=== PATIENT | female | born 1950 | race Caucasian/White ===

== ENCOUNTER 2019-03-25 07:40 | Inpatient (IN) ==
--- NOTE | 2019-02-24 16:59 | History & Physical Report ---
Date of Service February 24, 2019 Assessment & Plan (1) Unilateral primary osteoarthritis, left hip: DIAGNOSES: Left hip osteoarthritis. PROCEDURE: Left total hip arthroplasty. PLAN: The patient is scheduled to undergo this procedure with Dr. Jarrod Arias at [facility] as an inpatient on March 25, 2019. Risks and complications of the procedure, such as infection, bleeding, pain, scarring, nerve and blood vessel damage, weakness, wound problems, stiffness, incomplete relief of symptoms, hardware failure, hardware loosening, fracture, tendon or ligament injury, dislocation, leg-length inequality, blood clots, embolism, heart attack, stroke and were explained to the patient at her visit today by Dr. Arias. Informed consent to perform the procedure was obtained. We also need to obtain preoperative medical clearance from the patient's primary care provider, Dr. Chris Arnold. She states she has an appointment with him next Friday and will have him sign off PCP clearance form that was provided. The patient will also need to obtain a preoperative CBC with differential, complete metabolic panel, PT, INR, blood type and screen, urinalysis, urine culture, EKG, hemoglobin A1c, and a nasal culture for MRSA. She states she will obtain these tests at [facility] in [place]. She is scheduled for her preoperative anesthesia clearance examination at the [facility] on March 04 at 2:30 p.m. The patient was given information regarding antibiotic use after total joint replacement today. She was given information about lectures offered by [facility] in regards to joint replacement therapy. We went over some discharge planning information with her. She states she will most likely be discharged home with some type of home health or therapy service. I advised her that I will prescribe medications for pain control upon discharge from the hospital. I advised her to bring her walker with her the day of surgery. I instructed her about purchasing a hip kit to use at home to help her do activities of daily living. The patient will be scheduled for her postoperative followup visit at the 2-week postoperative interval with Dr. Arias on April 09 at 1:15 in the afternoon. The patient verbalized understanding of all information provided during today's visit, thanked us for the care she has received, and states if she has questions or concerns that should arise prior to her surgery date, she will contact the clinic accordingly. History of Present Illness Chief Complaint: left hip pain Primary Care Provider: Chris Arnold CHIEF COMPLAINT: Left hip pain. HISTORY OF PRESENT ILLNESS: This 68-year-old female presents to clinic today for a preoperative history and physical. The patient complains of a 1+-year history of hip pain that has been insidious with onset without any traumatic type of injury. She states that the pain is located over the lateral aspect of the hip, but over the past several months it has moved into the groin. The pain is exacerbated with ambulation or standing in one place for a long period of t [place] and improves with rest, and states that her PCP prescribed Celebrex, which has been not very effective at alleviating any type of pain. The patient denies any numbness or tingling in her left lower extremity or any localization of the vein to the posterior aspect of the hip. PAST MEDICAL HISTORY: Asthma, breast cancer, gastroesophageal reflux, anemia, gallstones, hyperlipidemia, hypertension. PAST SURGICAL HISTORY: Partial mastectomy, total abdominal hysterectomy, bilateral salpingo-oophorectomy, cardiac catheterization, hernia repair, tonsillectomy/adenoidectomy and appendectomy. FAMILY HISTORY: Positive for heart disease. ALLERGIES: THE PATIENT HAS MEDICATION ALLERGIES TO PENICILLIN AND CECLOR. SOCIAL HISTORY: The patient denies tobacco or illicit drug use. States she occ asionally consumes alcohol. CURRENT MEDICATIONS: Advair Diskus 100 mcg-50 mcg 1 puff twice daily, aspirin 81-mg oral delayed-release tablet 1 tab daily, Cartia XT 240 mg/24-hour oral capsule extended-release 1 cap daily, Celebrex 100-mg oral capsule 1 cap daily, folic acid unknown dosage daily, hydrochlorothiazide 12.5-mg oral capsule daily, losartan 100-mg oral tablet daily, simvastatin 20-mg oral tablet at bedtime, venlafaxine 37.5-mg oral tablet 1 tab daily, vitamin D3 1000 international units oral capsule daily, zafirlukast 20-mg oral tablet 1 tab twice daily, and Zyrtec unknown dosage daily. Allergies Allergy/AdvReac Type Severity Reaction Status Date / Time Penicillins Allergy Intermediate HIVES Unverified 05/02/10 14:42 Home Medications Home Medications Medication Instructions Recorded Confirmed Type Amlodipine (Norvasc) 10 mg PO DAILY #0 05/02/10 History Esomeprazole Magnesium (Nexium) 40 mg PO DAILY #0 05/02/10 History Fluticasone Prop/Salmeterol 1 puff INHALATION BID #0 05/02/10 History (Advair Diskus 250/50 Mcg *) Hydrochlorothiazide (Hctz *) 25 mg PO DAILY #0 05/02/10 History Losartan Potassium (Cozaar *) 100 mg PO DAILY #0 05/02/10 History Simvastatin (Zocor) 20 mg PO QPM #0 05/02/10 History Zafirlukast (Accolate *) 20 mg PO BID #0 05/02/10 History CHOLECALCIFEROL (VITAMIN D 1000 2,000 inter.unit PO DAILY #0 cap 04/30/12 History UNIT) MECLIZINE HCL (ANTIVERT) 12.5 mg PO TID PRN #0 tab 04/30/12 History TAMOXIFEN CITRATE 20 mg PO DAILY #0 tab 04/06/13 History VENLAFAXINE HCL (VENLAFAXINE 37.5 mg PO DAILY #0 cap 04/06/13 History EXTENDED REL) Review of Systems All systems reviewed & are unremarkable except as noted in HPI & below Physical Exam Physical Exam: PHYSICAL EXAMINATION: Skin: The patient's skin is normal in appearance. No skin lesions or discharge. Eyes: Pupils are equal and react to light and accommodating. Extraocular movements are intact. Throat: Posterior oropharynx is clear with absence of edema, erythema or exudate. Cardiovascular exam: The patient has a regular rate and rhythm with no murmurs or gallops appreciated. Lungs: Auscultation of the lung marsh reveals clear breath sounds throughout; no wheezing, rales or rhonchi. Abdomen is mildly obese, nondistended, nontender with normoactive bowel sounds. Extremities: Left hip, flexion is limited to 85 degrees, internal rotation to -25 degrees, external rotation to 45 degrees. Stinchfield and log roll tests are negative. The patient experiences referred pain to the groin with passive abduction and adduction. Straight-leg raise test is negative. The patient is neurovascularly intact in the left lower extremity. Calf is soft and supple, nontender to palpation, and she has no tenderness over the trochanteric bursa. Neurological exam: Cranial nerves 2-12 are intact. No motor or sensory deficit. Psychological/general exam: The patient is alert and oriented x3 with proper grooming and hygiene.
--- NOTE | 2019-03-03 16:23 | PAT Medication Instructions ---
Medication Instructions Date of Service March 03, 2019 Home Medications acetaminophen [Tylenol Extra Strength] 1,000 mg PO Q6H PRN albuterol sulfate 2 puff INHALATION Q6H PRN aspirin [Aspir-81] 81 mg PO QAM celecoxib [Celebrex] 100 mg PO BID cetirizine [Zyrtec] 10 mg PO QAM cholecalciferol (vitamin D3) [Vitamin D3] 1,000 unit PO QAM cyanocobalamin (vitamin B-12) 1,000 mcg PO WK diltiazem HCl [Cartia XT] 240 mg PO QAM fluticasone propion-salmeterol [Advair Diskus] 1 inh INHALATION BID folic acid 1 mg PO QAM hydrochlorothiazide 12.5 mg PO QAM losartan 100 mg PO QAM simvastatin 20 mg PO PM zafirlukast 20 mg PO BID ASK your surgeon for instructions celecoxib [Celebrex] 100 mg PO BID DO NOT take the morning of surgery cetirizine [Zyrtec] 10 mg PO QAM cholecalciferol (vitamin D3) [Vitamin D3] 1,000 unit PO QAM cyanocobalamin (vitamin B-12) 1,000 mcg PO WK folic acid 1 mg PO QAM hydrochlorothiazide 12.5 mg PO QAM losartan 100 mg PO QAM zafirlukast 20 mg PO BID Take morning of surgery With a small sip of water, OTHERWISE NOTHING TO EAT OR DRINK AFTER MIDNIGHT: acetaminophen [Tylenol Extra Strength] 1,000 mg PO Q6H PRN (okay to take up to 4 hours prior to surgery if needed) albuterol sulfate 2 puff INHALATION Q6H PRN (use if needed; please bring with you to hospital day of surgery if possible) aspirin [Aspir-81] 81 mg PO QAM diltiazem HCl [Cartia XT] 240 mg PO QAM fluticasone propion-salmeterol [Advair Diskus] 1 inh INHALATION BID Take evening before surgery acetaminophen [Tylenol Extra Strength] 1,000 mg PO Q6H PRN (if needed) albuterol sulfate 2 puff INHALATION Q6H PRN (if needed) fluticasone propion-salmeterol [Advair Diskus] 1 inh INHALATION BID simvastatin 20 mg PO PM zafirlukast 20 mg PO BID Other Notes If you have any questions please call us at [phone] or [phone] or [phone] or [phone]
--- NOTE | 2019-03-04 14:16 | Anesthesiology Consultation ---
Date of Service March 04, 2019 Assessment & Plan (1) Encounter for pre-operative examination: - Awaiting PCP response abnormal preop EKG and optimization (Dr. Arnold). Chart Review Chart Review: Patient seen in Pre Admission Testing Teaching & Discussion Pre-Anesthesia Teaching/Discussion Notes: Instructed NPO after midnight before surgery,except medications with 15 cc of water. Medication instructions provided according to the PAT guidelines. History Surgery Operation Date: 03/25/19 10:05 Proposed Procedures p Left Total Hip Arthroplasty - Jarrod Arias MD Height/Weight Height: 5 ft 2 in Weight: 75.7 kg Allergies Allergy/AdvReac Type Severity Reaction Status Date / Time Penicillins Allergy Intermediate HIVES Verified 03/03/19 13:50 cefaclor [From Ceclor] Allergy Unknown Rash Verified 03/03/19 13:50 wheat Allergy Unknown CELIAC Verified 03/03/19 13:51 DISEASE Medications Home Medications Medication Instructions Recorded Confirmed Last Taken acetaminophen [Tylenol Extra 1,000 mg PO Q6H PRN 03/03/19 03/03/19 Unknown Strength] albuterol sulfate 2 puff INHALATION Q6H PRN 03/03/19 03/03/19 Unknown aspirin [Aspir-81] 81 mg PO QAM 03/03/19 03/03/19 Unknown celecoxib [Celebrex] 100 mg PO BID 03/03/19 03/03/19 Unknown cetirizine [Zyrtec] 10 mg PO QAM 03/03/19 03/03/19 Unknown cholecalciferol (vitamin D3) 1,000 unit PO QAM 03/03/19 03/03/19 Unknown [Vitamin D3] cyanocobalamin (vitamin B-12) 1,000 mcg PO WK 03/03/19 03/03/19 Unknown diltiazem HCl [Cartia XT] 240 mg PO QAM 03/03/19 03/03/19 Unknown fluticasone propion-salmeterol 1 inh INHALATION BID 03/03/19 03/03/19 Unknown [Advair Diskus] folic acid 1 mg PO QAM 03/03/19 03/03/19 Unknown hydrochlorothiazide 12.5 mg PO QAM 03/03/19 03/03/19 Unknown losartan 100 mg PO QAM 03/03/19 03/03/19 Unknown simvastatin 20 mg PO PM 03/03/19 03/03/19 Unknown zafirlukast 20 mg PO BID 03/03/19 03/03/19 Unknown Past Medical History Medical History Asthma GERD (gastroesophageal reflux disease) HX- No issues since hiatal hernia repair Hiatal hernia Hyperlipidemia Hypertension Osteoarthritis Exercise / Class Metabolic Activity III < 4 Walking/Shop/Light housework Past Family History Family History Brother Family hx of colon cancer Past Surgical History Surgical History Cancer RIGHT BREAST LUMPECTOMY-NO NODE EXCISION 2007-RADIATION/NO CHEMO History of cardiac cath 5+ YEARS AGO= NO STENTS History of cholecystectomy History of hysterectomy TOTAL History of repair of hiatal hernia History of tonsillectomy Past Anesthesia History No Hx of Anesthesia Complications (except post-op nausesa (no issues when pre- treatment given)) and No Family Hx of Anesthesia Complications History of PONV History of PONV (post-op nausesa (no issues when pre-treatment given)) and Hx of Motion Sickness Social History Smoking Status: Former smoker Do You Dip or Chew Tobacco: No Smoking End Date: QUIT 20 YRS AGO Hx Alcohol Use: Yes Alcohol type: wine alcohol intake frequency: a few times a week Hx Substance Use: No substance use type: does not use Review of Systems Patient denies chest pain, shortness of breath, reflux, cough, wheezing, pa lpitations. Physical Exam Vital Signs VITALS BP 130/78 P 60 TEMP 98.3 SP02 94%RA RESP 18 PHYSICAL Full neck and c-spine range of motion. Full TMJ range of motion. TMD 3.5 finger breaths Mallampati Score 1 Dentition: chipped molar, missing sides/molars, upper side crowns Lungs: clear throughout to auscultation Cardiac: regular rate and rhythm, no murmurs noted Spine: normal Carotid arteries: negative bruit Extremities: no edema Testing Laboratory Results APTT 24.0 Seconds (21.0-31.0) 03/04/19 14:30 Blood Type A Negative 03/04/19 14:30 Antibody Screen NEGATIVE 03/04/19 14:30 02/25/19 WBC 6.7 H/H 13.9/43.6 PLATELETS 238 SODIUM 144 POTASSIUM 4.0 CHLORIDE 108 CO2 28 BUN 21 CREATININE 0.6 GLUCOSE 93 PT 9.2 INR 0.96 HGBA1C 5.6% UA negative bacteria URINE CULTURE mixed gigi Electrocardiogram Date: 02/25/19 NSR at 80bpm. Cannot rule out anterior infarct.
[2019-03-04 15:48] LABS: Partial Thromboplastin Ratio 0.9
[~2019-03-25 07:40] MED LIST: ACETAMINOPHEN 500 MG TAB PO SCH; BUPIVACAINE 0.5 % 5 MG/1 ML PF 10ML VIAL ONE; CEFAZOLIN 2000MG 2,000 MG/15 ML SYR IV SCH; CeleBREX 200 MG CAP PO SCH; FAMOTIDINE 20 MG TAB PO SCH; LR 500ML BOLUS, THEN 15ML/HR IV SCH; LR 60ML/HR IV SCH; METOCLOPRAMIDE HCL 10 MG TABLET PO SCH; ROPIVACAINE 0.5% HCL/PF 150 MG, BUPIVACAINE 0.5% MPF 30 ML, EPINEPHrine 30MG/30ML (OR U... INSTIL SCH; SCOPOLAMINE 1.5 MG TDSY TD SCH; TRAMADOL HCL 50 MG TABLET PO SCH; TRANEXAMIC ACID 1,000 MG x 1 **For Topical Use TOP SCH; dexAMETHasone 4 MG TAB PO SCH
[2019-03-25] MEDS ORDERED: fentaNYL citrate 100 MCG/2 ML VIAL ONE (09:17)
[2019-03-25] MEDS ORDERED: PROPOFOL IV EMULSION 10 MG/ML 20 ML VIAL IV ONE (09:17)
[2019-03-25] MEDS ORDERED: MIDAZOLAM HCL 1 MG/ML 2ML VIAL ONE ×2 (09:17→10:26)
--- NOTE | 2019-03-25 09:43 | History & Physical Bridge Note ---
Date of Service March 25, 2019 History & Physical Bridge Note I have examined the patient, reviewed the History & Physical and in the interval since the performance of the History & Physical I have noted the following changes of clinical significance: no changes noted
[2019-03-25] MEDS ORDERED: ATROPINE SULFATE 0.1 MG/ML 10ML SYR IV PRN (10:38)
[2019-03-25] MEDS ORDERED: ePHEDrine sulfate 50 MG/ML AMP IV PRN (10:38)
--- NOTE | 2019-03-25 11:50 | Post Operative Brief Note ---
Immediate Post Op Note v1 Date of Surgery March 25, 2019 Pre & Post Diagnosis Operation Date: 03/25/19 10:05 Pre-Op Diagnosis: Left Hip Osteoarthritis Post-Op Diagnosis: Left Hip Osteoarthritis Procedure Operation Date: 03/25/19 10:05 Actual Procedures p Left Total Hip Arthroplasty--Uncemented(Left) - Jarrod Arias MD Surgeon Jarrod Arias MD Sales Effectiveness Manager NANCY Fitzgerald PA-C Estimated Blood Loss 200 Findings Consistent with Post-Op Diagnosis Fluids 800 cc Specimens Femoral head Anesthesia Type Spinal MAC Complications none Disposition Accompanied Patient To Recovery: No Disposition: Recovery Room
[2019-03-25] MEDS ORDERED: ONDANSETRON INJ 2 MG/ML 2 ML VIAL IV PRN (12:05)
[2019-03-25] MEDS ORDERED: ALUMINUM/MAGNESIUM SUSP 30 ML UDC PO PRN (12:05)
[2019-03-25] MEDS ORDERED: DiphenhydrAMINE HCL 50 MG/ML VIAL IV PRN (12:05)
[2019-03-25] MEDS ORDERED: NALOXONE HCL 0.4 MG/1 ML VIAL/CARP IV PRN (12:05)
[2019-03-25] MEDS ORDERED: bisacodyL 10 MG SUPP PR PRN (12:05)
[2019-03-25] MEDS ORDERED: MAGNESIUM HYDROXIDE SUSP 30 ML UDC PO PRN (12:05)
[2019-03-25] MEDS ORDERED: METOCLOPRAMIDE HCL INJ 5 MG/ML 2 ML VIAL IV PRN (12:05)
[2019-03-25] MEDS ORDERED: OXYCODONE HCL IR 5 MG TAB (IMMEDIATE RELEASE) PO PRN (12:05)
[2019-03-25] MEDS ORDERED: HYDROmorphone INJ 0.5 MG/0.5 ML SYR IV PRN (12:05)
--- NOTE | 2019-03-25 12:05 | Operative Report ---
Post Operative Report Pre & Post Diagnosis Operation Date: 03/25/19 10:05 Pre-Op Diagnosis: Left Hip Osteoarthritis Post-Op Diagnosis: Left Hip Osteoarthritis Procedure Operation Date: 03/25/19 10:05 Actual Procedures p Left Total Hip Arthroplasty--Uncemented(Left) - Jarrod Arias MD Surgeon Jarrod Arias MD Steel Grinder NANCY Fitzgerald PA-C Estimated Blood Loss 200 Findings Consistent with Post-Op Diagnosis Specimens Left Femoral Head Complications none Disposition Accompanied Patient To Recovery: Yes Disposition: Recovery Room Description of Procedure I was present during the entire case assisting with wound closure and dressing application. Please see Dr. Arias procedure note for specifics of the case. I attest to the content of the Intraoperative Record and any orders documented therein. Any exceptions are noted below.
[2019-03-25] MEDS ORDERED: ACETAMINOPHEN 500 MG TAB PO PRN (12:08)
[2019-03-25] MEDS ORDERED: ALBUTEROL HFA 8 GM INHALER INH PRN (12:08)
--- NOTE | 2019-03-25 12:28 | XRay Report ---
XR hip 1V LT w pelvis CLINICAL HISTORY: Postoperative evaluation. COMPARISON: Pelvis radiograph February 24, 2019. FINDINGS: Alignment of the total left hip arthroplasty is anatomic. The hardware is intact. There is no fracture. Acetabular screw is noted. No unexpected radiopaque foreign bodies are noted. IMPRESSION: Expected findings following total left hip arthroplasty. Electronically signed by: eCsar Ho M.D. 03/25/2019 12:26 PM
--- NOTE | 2019-03-25 12:47 | Anesthesiology Progress Note ---
Date of Service March 25, 2019 Anesthesia Post Procedure Vital Signs Vital Signs: Temp Pulse Pulse Resp BP BP Pulse Ox 03/25/19 12:40 36.9 C 63 16 119/67 97 03/25/19 12:30 65 15 120/64 97 03/25/19 12:20 64 13 105/60 93 03/25/19 12:10 61 17 111/59 L 95 03/25/19 12:03 36.7 C 63 12 97/60 L 100 03/25/19 08:12 36.8 C 88 18 175/86 H 95 Transfer of Care Handoff Completed per policy Notes Mental Status: alert / awake / arousable Patient Amnestic to Procedure: Yes Nausea / Vomiting: adequately controlled Pain: adequately controlled Airway Patency, RR, SpO2: stable & adequate BP & HR: stable & adequate Hydration State: stable & adequate Neuraxial Anesthesia: was administered and sensory block is resolving Anesthetic Complications: no major complications apparent
[2019-03-25] MEDS: KETOROLAC TROMETHAMINE 15 MG/ML VIAL IV SCH ×2 (13:48→20:27)
--- NOTE | 2019-03-25 14:02 | Operative Report ---
DATE OF OPERATION: 03/25/2019 PREOPERATIVE DIAGNOSIS: Left hip osteoarthritis. POSTOPERATIVE DIAGNOSIS: Left hip osteoarthritis. OPERATIONS PERFORMED: Left total hip arthroplasty. SURGEON: Jarrod Arias MD. ROVING SIZER: Mari Fitzgerald PA-C and Andrzej Hodgson MS-3. ESTIMATED BLOOD LOSS: 200 mL. IV FLUIDS: 800 mL crystalloid. SPECIMENS: Femoral head. COMPLICATIONS: None. IMPLANTS: 1. DePuy 54 mm outer diameter [place] Gription acetabular sector cup. 2. [place] 6.5 x 40 mm cancellous bone screw. 3. A polyethylene liner Ultrex [place] with 36 mm inner diameter. 4. DePuy [place] 4 standard offset stem. 5. Biolox delta 36 mm diameter femoral head with +8.5 offset. INDICATIONS: The patient is a 68-year-old female with left hip osteoarthritis, refractory to conservative management. I had a long discussion with her about the risks and benefits of surgery, alternatives to surgery and expected outcomes. After reviewing all these, she elected to proceed with surgery. All questions were answered. Informed consent was signed. DESCRIPTION OF THE OPERATION: The patient was identified in the preoperative holding area where her surgical site was marked. She was given a spinal anesthetic, then brought back to the main Operating Room where she was moved on to the Operating Room table and carefully positioned in the lateral decubitus position. All bony prominences were padded. Axillary roll was placed. She was prepped and draped in normal sterile fashion. Prior to incision, a multidisciplinary timeout was called. All in the room were in agreement. I began by making 16 cm long incision for posterior approach to the hip. Fascia was incised in line with the incision. Charnley bow was placed. Trochanteric bursa was excised. Piriformis and short external rotators were dissected off the posterior aspect of the hip capsule. A box cut was made in the hip capsule. Femoral head was dislocated. A neck cut was made at 10 mm, which was our preoperative template. The acetabulum was exposed. The labrum and cotyloid fossa contents were excised. We then began reaming with a size 46 mm reamer. This was used to medialize her acetabulum down to the medial wall. We then sequentially reamed up to a size 54 cup. The 54 cup was then opened up and was impacted into position with 45 degrees of lateral opening and 25 degrees of anteversion. A single cancellous bone screw was placed up into the ilium. Excellent fixation was obtained. The polyethylene liner was then placed and impacted into position. A locking mechanism was checked to ensure that head has engaged, which it had. Next, the femur was exposed. The ZenMate cutter was used to remove the lateral neck. The intramedullary guide was used followed by the lateralizing reamer. We then broached up to a size 4 broach. We trialed there initially with a standard offset neck to +5 head. Her offset was just a little bit less than what we had measured lesser troch to center head distance before making a neck cut and therefore we upsized her to +8.5 head. Here her offset measurement was symmetric and her leg lengths were symmetric. She had no impingement with extension and external rotation. She was stable in the sleeper position. At 90 degrees of hip flexion, she could be internally rotated 40 degrees before leaving out of the cup. I was happy with the stability exam. Therefore, the trial components removed. The real standard offset femoral stem was opened up and impacted down in position. It sat at the same level as the broach; therefore, the +8.5 mm ceramic femoral head 36 mm diameter was opened up and impacted gently down onto the trunnion. The hip was atraumatically reduced. The wound was irrigated with dilute Betadine solution. We then used topical tranexamic acid 100 mL after the wound had been irrigated out. We then began to close. The short external rotators and capsule were repaired to the posterior aspect of the greater trochanter through bone tunnels. The fascia was run with a looped #1 PDS. The subcutaneous layers were closed with a running #1 PDS in 2 layers. The dermis was closed using 2-0 Vicryl. Zipline was used for the skin followed by Silverlon dressing and a compressive dressing. The patient was moved back in the supine position. Her leg lengths were checked and were symmetric. She was then transferred to the Recovery Room in stable condition. POSTOPERATIVE COURSE: The patient will be admitted overnight for pain control and monitoring. She will discharge home tomorrow. She will be on aspirin for DVT prophylaxis. I attest to the content of the Intraoperative Record and any orders documented therein. Any exception s are noted below.
[2019-03-25] MEDS: ACETAMINOPHEN 500 MG TAB PO SCH ×2 (14:43→22:18)
[2019-03-25] MEDS: [UNRECOGNIZED DRUG - REMARK] SCH (15:35)
[2019-03-25] MEDS ORDERED: CHECK SCOPOLAMINE PATCH PLACEMENT SCH (16:00)
[2019-03-25] MEDS: SODIUM CHLORIDE 0.9% 1000ML 1,000 ML IV SCH ×2 (16:59→22:45)
[2019-03-25] MEDS: CEFAZOLIN 2000MG 2,000 MG/15 ML SYR IV SCH (17:43)
[2019-03-25] MEDS ORDERED: INFLUENZA VACCINE HIGH DOSE 65+ 0.5 ML SYR IM ONE (18:15)
[2019-03-25] MEDS ORDERED: INFLUENZA ADMINISTRATION CHARGE ONE (18:15)
[2019-03-25] MEDS: DOCUSATE SODIUM 100 MG CAP PO SCH (20:25)
[2019-03-25] MEDS: ASPIRIN 81 MG ECTAB PO SCH (20:25)
[2019-03-25] MEDS: FLUTICASONE/SALMETEROL 250/50 (ADVAIR) 14 PUFF/1 INHALER INH SCH (20:26)
[2019-03-25] MEDS ORDERED: CELECOXIB 100 MG CAP PO SCH (21:00)
[2019-03-25] MEDS ORDERED: ASPIRIN 81 MG ECTAB PO SCH (21:00)
[2019-03-25] MEDS ORDERED: SIMVASTATIN 20 MG TAB PO SCH (21:00)
[2019-03-25] MEDS ORDERED: SENNA 8.6 MG TAB PO SCH (21:00)
[2019-03-26] MEDS: [UNRECOGNIZED DRUG - REMARK] SCH ×2 (00:34→08:10)
[2019-03-26] MEDS: CEFAZOLIN 2000MG 2,000 MG/15 ML SYR IV SCH (01:45)
[2019-03-26] MEDS: KETOROLAC TROMETHAMINE 15 MG/ML VIAL IV SCH ×2 (01:45→08:11)
[2019-03-26] MEDS: ACETAMINOPHEN 500 MG TAB PO SCH (05:43)
[2019-03-26 05:57] LABS: Hematocrit (blood only) 32.1 % (37-47); Hemoglobin 10.6 g/dL (12.0-16.0); Immature Granulocytes # (auto) 0.03 K/uL (0.00-0.02); Immature Granulocytes % (auto) 0.2 %; Lymphocytes # (auto) 0.82 K/uL (1.2-3.4); Lymphocytes % (auto) 6.7 %; Mean Corpuscular Hemoglobin 31.1 pg (25-34); Mean Corpuscular Volume 94.1 fL (80-100); Mean Platelet Volume 9.9 fL (7.4-10.4); Monocytes # (auto) 0.89 K/uL (0.11-0.59); Monocytes % (auto) 7.3 %; Neutrophils # (auto) 10.44 K/uL (1.4-6.5); Neutrophils % (auto) 85.8 %; Platelet Count 186 K/uL (130-400); RDW Coefficient of Variation 12.8 % (11.5-14.5); RDW Standard Deviation 43.9 fL (36.4-46.3); Red Blood Count 3.41 M/uL (4.2-5.4); White Blood Count 12.18 K/uL (4.8-10.8)
[2019-03-26 06:32] LABS: BUN Creatinine Ratio 32.2 (10-20); Calcium 8.3 mg/dl (8.5-10.1); Creatinine Clr Calc Pharmacy 72.5 ml/min; Est GFR (African American) 102.7; Est GFR (Non-African American) 88.6; Potassium 3.6 mmol/L (3.5-5.1)
--- NOTE | 2019-03-26 07:42 | Anesthesiology Progress Note ---
Date of Service March 26, 2019 Anesthesia Post Procedure Vital Signs Vital Signs: Temp Pulse Pulse Resp BP BP Pulse Ox 03/26/19 03:15 36.8 C 84 18 132/73 93 03/25/19 22:51 36.9 C 77 16 143/71 H 95 03/25/19 18:37 36.7 C 79 16 123/67 93 03/25/19 15:52 36.5 C 68 16 114/69 93 03/25/19 15:05 36.5 C 68 16 112/69 94 03/25/19 14:00 74 16 123/73 93 03/25/19 13:27 63 16 120/71 95 03/25/19 13:00 36.3 C L 60 12 119/72 97 03/25/19 12:55 57 L 13 115/63 94 03/25/19 12:40 36.9 C 63 16 119/67 97 03/25/19 12:30 65 15 120/64 97 03/25/19 12:20 64 13 105/60 93 03/25/19 12:10 61 17 111/59 L 95 03/25/19 12:03 36.7 C 63 12 97/60 L 100 03/25/19 08:12 36.8 C 88 18 175/86 H 95 Notes Mental Status: alert / awake / arousable and participated in evaluation Patient Amnestic to Procedure: Yes Nausea / Vomiting: adequately controlled Pain: adequately controlled Airway Patency, RR, SpO2: stable & adequate BP & HR: stable & adequate Hydration State: stable & adequate Anesthetic Complications: Pt Satisfied with anesthetic care
[2019-03-26] MEDS ORDERED: dexAMETHasone 4 MG TAB PO SCH (08:00)
[2019-03-26 08:06] VITALS: BP 133/87; PULSE 83; TEMP 98.1; O2SAT 96
--- NOTE | 2019-03-26 08:06 | Orthopedic Progress Note ---
Date of Service March 26, 2019 Assessment & Plan (1) Status post left hip replacement: PT/OT this Am Discharge home if passes PT Follow-up 2 weeks Subjective Pain well controlled. Denies f/c/cp/sob Physical Exam Physical Exam: Dressing c/d/i. Distally NVI Results & Data Vital Signs (Past 12 Hours) Vital Signs Temp Pulse Resp BP BP Pulse Ox 03/26/19 03:15 36.8 C 84 18 132/73 93 03/25/19 22:51 36.9 C 77 16 143/71 H 95
[2019-03-26] MEDS: DOCUSATE SODIUM 100 MG CAP PO SCH ×2 (08:09→08:15)
[2019-03-26] MEDS: FLUTICASONE/SALMETEROL 250/50 (ADVAIR) 14 PUFF/1 INHALER INH SCH (08:09)
[2019-03-26] MEDS: ASPIRIN 81 MG ECTAB PO SCH (08:09)
[2019-03-26] MEDS ORDERED: hydroCHLOROthiazide 25 MG TAB PO SCH (09:00)
[2019-03-26] MEDS ORDERED: CHOLECALCIFEROL 1,000 UNITS TAB PO SCH (09:00)
[2019-03-26] MEDS ORDERED: dilTIAZem HCL 240 MG CAPCR PO SCH (09:00)
[2019-03-26] MEDS ORDERED: FOLIC ACID 1 MG TAB PO SCH (09:00)
[2019-03-26] MEDS ORDERED: LOSARTAN POTASSIUM 50 MG TAB PO SCH (09:00)
[2019-03-26] MEDS ORDERED: CYANOCOBALAMIN 500 MCG TABLET (VITAMIN B-12) PO SCH (09:00)
[2019-03-26] MEDS ORDERED: MULTIVITAMIN TAB PO SCH (09:00)
[2019-03-26] MEDS ORDERED: CETIRIZINE HCL 10 MG TABLET PO SCH (09:00)
[2019-03-26] MEDS ORDERED: CeleBREX 200 MG CAP PO SCH (13:00)
--- NOTE | 2019-03-29 07:47 | Discharge Summary ---
Date of Service March 29, 2019 Admission HPI Per Admitting Provider CHIEF COMPLAINT: Left hip pain. HISTORY OF PRESENT ILLNESS: This 68-year-old female presents to clinic today for a preoperative history and physical. The patient complains of a 1+-year history of hip pain that has been insidious with onset without any traumatic type of injury. She states that the pain is located over the lateral aspect of the hip, but over the past several months it has moved into the groin. The pain is exacerbated with ambulation or standing in one place for a long period of time and improves with rest, and states that her PCP prescribed Celebrex, which has been not very effective at alleviating any type of pain. The patient denies any numbness or tingling in her left lower extremity or any localization of the vein to the posterior aspect of the hip. PAST MEDICAL HISTORY: Asthma, breast cancer, gastroesophageal reflux, anemia, gallstones, hyperlipidemia, hypertension. PAST SURGICAL HISTORY: Partial mastectomy, total abdominal hysterectomy, bilateral salpingo-oophorectomy, cardiac catheterization, hernia repair, tonsillectomy/adenoidectomy and appendectomy. FAMILY HISTORY: Positive for heart disease. ALLERGIES: THE PATIENT HAS MEDICATION ALLERGIES TO PENICILLIN AND CECLOR. SOCIAL HISTORY: The patient denies tobacco or illicit drug use. States she occasionally consumes alcohol. CURRENT MEDICATIONS: Advair Diskus 100 mcg-50 mcg 1 puff twice daily, aspirin 81-mg oral delayed-release tablet 1 tab daily, Cartia XT 240 mg/24-hour oral capsule extended-release 1 cap daily, Celebrex 100-mg oral capsule 1 cap daily, folic acid unknown dosage daily, hydrochlorothiazide 12.5-mg oral capsule daily, losartan 100-mg oral tablet daily, simvastatin 20-mg oral tablet at bedtime, venlafaxine 37.5-mg oral tablet 1 tab daily, vitamin D3 1000 international units oral capsule daily, zafirlukast 20-mg oral tablet 1 tab twice daily, and Zyrtec unknown dosage daily. Admission Exam Per Admitting Provider PHYSICAL EXAMINATION: Skin: The patient's skin is normal in appearance. No skin lesions or discharge. Eyes: Pupils are equal and react to light and accommodating. Extraocular movements are intact. Throat: Posterior oropharynx is clear with absence of edema, erythema or exudate. Cardiovascular exam: The patient has a regular rate and rhythm with no murmurs or gallops appreciated. Lungs: Auscultation of the lung marsh reveals clear breath sounds throughout; no wheezing, rales or rhonchi. Abdomen is mildly obese, nondistended, nontender with normoactive bowel sounds. Extremities: Left hip, flexion is limited to 85 degrees, internal rotation to -25 degrees, external rotation to 45 degrees. Stinchfield and log roll tests are negative. The patient experiences referred pain to the groin with passive abduction and adduction. Straight-leg raise test is negative. The patient is neurovascularly intact in the left lower extremity. Calf is soft and supple, nontender to palpation, and she has no tenderness over the trochanteric bursa. Neurological exam: Cranial nerves 2-12 are intact. No motor or sensory deficit. Psychological/general exam: The patient is alert and oriented x3 with proper grooming and hygiene. Principal Diagnosis Left hip osteoarthritis Discharge Exam Dressing c/d/i. Distally NVI Discharge Data Allergies Allergy/AdvReac Type Severity Reaction Status Date / Time cefaclor [From Ceclor] Allergy Intermediate Rash Verified 03/25/19 08:05 Penicillins Allergy Intermediate HIVES Verified 03/25/19 08:05 wheat AdvReac Unknown CELIAC Verified 03/25/19 08:05 DISEASE Consultations 03/26/19 08:00 Consult Case Management - Discharge Planning Routine Procedures Performed Operation Date: 03/25/19 10:05 Actual Procedures p Left Total Hip Arthroplasty--Uncemented(Left) - Jarrod Arias MD Hospital Course (1) Status post left hip replacement: Patient did well overnight. Pain well controlled with PO pain meds. Read y for discharge home after AM PT/OT. PT/OT this Am Discharge home if passes PT Follow-up 2 weeks Total Time Total Time Spent Total Time Spent (In Minutes): 20 mins Total Time Includes: Examination of the Patient, Discharge Planning and Medication Reconciliation Discharge Plan Discharge Items Patient Disposition: Home - Home Health Services Reason For Visit: Left Hip Osteoarthritis Discharge Diagnosis: Left hip osteoarthritis Activity: As commented below Lifting: None Bathing: Keep incision dry Bathing Comment: May shower tomorrow Sexual Activity: Wait until after follow-up appointment Exercise/Sports: Wait until after follow-up appointment Weightbearing: Left weightbearing Weightbearing Comment: as tolerated with walker assistance Non-emergency contact: Primary Care Provider Call non-emergency contact if: you have any medication questions, your pain is not controlled, your temperature is above 101.5, your wound has increased r edness and your wound has increased drainage Follow-up/Referrals: Chris Arnold D.O. [Primary Care Provider] - Diet: Regular Addtl Attending Provider Instructions: Post-operative Instructions Dear Patient and Family/Friends, Before you are discharged from the hospital, it is important to know what to expect when you get home after surgery. To that end, we have created this sheet of discharge instructions which covers many commonly asked questions. Make sure you go through this sheet in its entirety with your nurse before you are discharged. Please note that we will go over the specifics of your surgery and recovery when you return for your first post-operative visit. Sincerely, Dr. Arias Medications 1. Oxycodone 5mg: take 1-2 tabs po q 4-6 hrs as needed for pain control 2. Diclofenac Sodium 75 mg: take 1 tab twice daily with food for 30 days post operatively 3. Extra Strength Tylenol 500 mg: Take 2 tabs with every other dose of the Oxycodone until you have Finished the Oxy; then take 2 tabs every 6-8 hrs as needed for pain control. 4. Aspirin 81 mg: increase you Aspirin to twice daily for first 30 days post operatively to prevent blood Clots. Pain Expect to be in a fair amount of pain after surgery. Remember, our goal is not to eliminate your pain, but to make it tolerable. It is a good idea to stay ahead of your pain by taking the medications you were prescribed once you get home. Typically, the pain starts improving 3-7 days after surgery. You should start weaning off the narcotic pain medication (oxycodone, hydrocodone, hydromorphone, morphine) as soon as your pain improves. Please call our office if your pain is not adequately controlled. Ice Ice your operative site at least 5 times a day for 15-30 minutes at a time. Make sure you have a thin cloth between the ice or cooling unit and your skin to prevent willis bite. This is especially important if you received a nerve block. Continue icing your operative site for the first 5-7 days after surgery, then as needed. Diet/Nausea/Vomiting Start by drinking clear liquids and eating crackers. If you can tolerate this, then you may resume your normal diet. If you feel nauseated or vomit, take Zofran/ondansetron (if prescribed). Please call our office if you have intractable nausea or vomiting, or, if after hours, you may go to the Emergency Room for help. Constipation Constipation is a common side effect of narcotic pain medication. If you have not had a bowel movement within 2 days after surgery, we recommend purchasing an over the counter laxative such as Milk of Magnesia, Dulcolax, or Miralax from a local pharmacy, and taking it as instructed. Call our clinic if any questions. Nerve block The anesthesia team sometimes places a nerve block to help with post-operative pain control. This results in significant numbness and inability to move the extremity. The nerve block usually wears off in 8-12 hours, but sometimes can last up to 24 hours. Please call our office if you are still unable to move your extremity after 24 hours, unless you received a pain pump to take home. Nerve blocks typically wear off quickly, so start taking pain medication as soon as you start feeling soreness near your surgical site. Weight bearing and Range of Motion. Do not bear any weight through your operative extremity immediately after surgery. If you had upper extremity surgery, do not lift anything with that arm. If you are in a knee brace, keep it locked in place until your follow-up. We will discuss your weight bearing, range of motion, and lifting restrictions in detail at your first post-operative appointment. Continuous Passive Motion (CPM) Machine If you were prescribed a CPM machine, it will start after your first post- operative appointment, at which time we will give you instructions on the range of motion settings and duration of treatment Physical therapy You will be given a prescription for physical therapy or occupational therapy at your first post-operative appointment. Typically, patients start therapy within 1 week of surgery Wound care and showering We will inspect your wound at your first post-operative visit, and may do a dressing change at that time. Most patients will be in a water-proof dressing that is removed 14 days after surgery. It is normal to see some dried blood on the dressing. Do not remove your dressing, paper strips or sutures yourself unless you are given permission. Showering is allowed the day after surgery. Do not scrub or remove any dressings. The wound should not be submerged underwater (i.e. in a bathtub or pool) until 4 weeks after surgery PIYUSH stockings If you were given white stockings, these are to be worn at all times except to shower (on both legs) for the first 2 weeks after surgery. Driving You may not drive while taking narcotic pain medication or while in a cast, splint, sling or brace. You, the patient, need to make the final determination about when you are safe to drive, however, the earliest you may consider driving after surgery is below: Hand/Wrist/Elbow Surgery: 3 days Shoulder Surgery: 2 weeks Hip,/Knee/Ankle Surgery: 4 weeks Fracture repair: 6 weeks Return to Work Your return to work depends on what surgery was done and what type of work you do. Please bring any paperwork your employer needs completed to your first po st-operative visit. Also, bring a description of your job duties, as this helps us to understand what risks you may face at work. Travel Avoid long distance travel (greater than 1 hour) in airplanes and cars for the first 6 weeks after surgery. If you must travel, you need to have a Doppler ultrasound done before you travel to rule out a blood clot in your legs. Follow-up You should have a follow-up appointment already scheduled 1-2 days after surgery. If not, please contact our office to make this appointment before you leave the hospital. When to call the office It is normal to have swelling and bruising in the limb that was operated on. This will improve with time. It is also normal to have fevers for the first 2 days after surgery. Reasons you should call your doctor include: Uncontrolled pain; Nausea, vomiting, or constipation that does not improve with medication; Fevers over 101.5, chills, sweats; Drainage or bleeding from the wound; Foul odor; Spreading areas of redness; Any other concerns Pending Studies at Discharge: No Stand-Alone Forms: My [facility] Medications and DC Order Prescriptions: New oxycodone 5 mg tablet See Rx Instructions .ROUTE .COMPLEX PRN (Reason: pain) Qty: 30 RF: 0 diclofenac sodium 75 mg tablet,delayed release (DR/EC) 75 mg PO BID PRN (Reason: pain) 30 Days Qty: 60 RF: 1 Continued fluticasone propion-salmeterol [Advair Diskus] 250-50 mcg/dose Blister With Device 1 inh INHALATION BID RF: 0 diltiazem HCl [Cartia XT] 240 mg Capsule,Extended Release 24hr 240 mg PO QAM RF: 0 simvastatin 20 mg Tablet 20 mg PO PM RF: 0 hydrochlorothiazide 12.5 mg Capsule 12.5 mg PO QAM RF: 0 zafirlukast 20 mg Tablet 20 mg PO BID RF: 0 folic acid 1 mg Tablet 1 mg PO QAM RF: 0 albuterol sulfate 90 mcg/actuation Hfa Aerosol Inhaler 2 puff INHALATION Q6H PRN (Reason: Wheezing) RF: 0 celecoxib [Celebrex] 100 mg Capsule 100 mg PO BID RF: 0 losartan 100 mg Tablet 100 mg PO QAM RF: 0 cholecalciferol (vitamin D3) [Vitamin D3] 1,000 unit Capsule 1,000 unit PO QAM RF: 0 Zyrtec 10 mg Capsule 10 mg PO QAM RF: 0 cyanocobalamin (vitamin B-12) 1,000 mcg Capsule 1,000 mcg PO WK RF: 0 acetaminophen [Tylenol Extra Strength] 500 mg Tablet 1,000 mg PO Q6H PRN (Reason: Pain) RF: 0 Changed aspirin [Aspir-81] 81 mg Tablet,Delayed Release (Dr/Ec) 81 mg PO BID Qty: 0 RF: 0 Discharge Orders: Discharge Order (Routine); Ordered 03/25/19 Ordered By: Vincent Fitzgerald Admission Data Admit Date/Time: 03/25/19 12:05 Attending Provider: Jarrod Arias Admit Provider: Jarrod Arias Primary Care Provider: Chris Arnold Other Interventions: Discharge Summary Assessment (RN) Last Done: 03/26/19 10:47 DC Date/Time DO NOT enter until pt leaves facility: 03/26/19 13:35
== END 2019-03-26 13:35 | disposition home health service (06) | DRG 470 ==
LOC: ASU 07:40 → 3E 12:05